=== PATIENT | male | born 1990 | race Caucasian/White ===

== ENCOUNTER 2024-12-22 15:16 | Emergency (ER) | payer OTHER ==
[~2024-12-22] VITALS: Ht 170.2 cm; Wt 72.7 kg
[2024-12-22] MEDS ORDERED: HYDROcodone/Acetaminophen 10-325 MG TAB PO ONE (15:45)
[2024-12-22] MEDS ORDERED: TIZANIDINE HYDRO4 MG PO (16:04)
[2024-12-22] MEDS ORDERED: IBU600 MG PO (16:04)
[2024-12-22 16:50] VITALS: BP 134/78
== END 2024-12-22 17:00 | disposition home or self-care (01) ==
LOC: ED 15:16
DX: S69.92XA Unspecified injury of left wrist, hand and finger(s), initial encounter (principal); W23.1XXA Caught, crushed, jammed, or pinched between stationary objects, initial encounter; Y99.0 Civilian activity done for income or pay